=== PATIENT | female | born 1965 | race Two or more races ===

== ENCOUNTER 2020-01-13 13:06 | Outpatient (CLI) | payer OTHER | END 2020-01-13 13:25 | disposition home or self-care (01) | LOC: NUCLEAR 13:06 | PROVIDERS: ATTEND Internal Medicine Sports Medicine | DX: C73 Malignant neoplasm of thyroid gland (principal) | CPT/HCPCS: 79005; A9517 ==

== ENCOUNTER 2020-01-17 11:36 | Outpatient (CLI) | payer OTHER | END 2020-01-17 11:50 | disposition home or self-care (01) | LOC: NUCLEAR 11:36 | PROVIDERS: ATTEND Internal Medicine Sports Medicine | DX: C73 Malignant neoplasm of thyroid gland (principal) ==

== ENCOUNTER 2021-01-04 13:10 | Outpatient (CLI) | payer OTHER | END 2021-01-04 13:11 | disposition home or self-care (01) | LOC: NUCLEAR 13:10 | PROVIDERS: ATTEND Internal Medicine Sports Medicine | DX: C73 Malignant neoplasm of thyroid gland (principal); E89.0 Postprocedural hypothyroidism | CPT/HCPCS: 79005; A9517 ==